=== PATIENT | female | born 1995 | race Caucasian/White ===

== ENCOUNTER 2020-12-23 19:28 | Inpatient (IN) | payer SELFPAY ==
[~2020-12-23] VITALS: Ht 157.5 cm; Wt 71.2 kg
[2020-12-23 20:54] LABS: HEMOGLOBIN 11.8 gm/dl (12.3-15.3); RED BLOOD COUNT 4.09 M/UL (4.00-5.10); WHITE BLOOD COUNT 9.7 K/UL (4.5-11.0)
[2020-12-23] MEDS ORDERED: IBUPROFEN800 MG PO (23:58)
[2020-12-23] MEDS ORDERED: COLACE100 MG PO (23:58)
[2020-12-24 07:09] LABS: HEMOGLOBIN 9.2 gm/dl (12.3-15.3)
== END 2020-12-24 23:50 | disposition home or self-care (01) | DRG 807 ==
LOC: GENOP 19:28 → OB 19:56
PROVIDERS: Obstetrics & Gynecology; ADMIT Obstetrics & Gynecology
PROC: 10E0XZZ Delivery of Products of Conception, External Approach (ICD-10-PCS; principal; 2020-12-23)
PROC: 0HQ9XZZ Repair Perineum Skin, External Approach (ICD-10-PCS; 2020-12-23)
PROC: 4A1HXCZ Monitoring of Products of Conception, Cardiac Rate, External Approach (ICD-10-PCS; 2020-12-23)
DX: O70.0 First degree perineal laceration during delivery (principal); Z37.0 Single live birth; Z3A.39 39 weeks gestation of pregnancy; Z90.49 Acquired absence of other specified parts of digestive tract; Z20.822 Contact with and (suspected) exposure to COVID-19
CPT/HCPCS: 36415; 51702; 83518; 85014; 85018; 85025; J2405; J2590; J2795; J3430; U0002